=== PATIENT | female | born 1945 | race Caucasian/White ===

== ENCOUNTER → 2017-07-29 | Outpatient (CLI) | payer MEDICARE ==
--- NOTE | 2017-07-30 13:15 | RADIOLOGY IMAGING REPORT ---
FACILITY: [facility] [place] PATIENT NAME: VINCE MARTI : [id number] MR: [id number] V: [id number] EXAM DATE: [id number] ORDERING PHYSICIAN: KULWANT TAPIA TECHNOLOGIST: Abiola Packer PROCEDURE:BILATERAL DIGITAL SCREENING MAMMOGRAM WITH CAD ASSISTED INTERPRETATION & 3D TOMOSYNTHESIS COMPARISON:01/24/16 & priors back to 08/14/2011 INDICATIONS:SCREENING FINDINGS: Stable benign appearing mass or lymph node in the lower outer quadrant of the Right breast. Breast parenchyma is mostly fatty replaced. There are no mammographic findings concerning for malignancy. There is no significant interval change. DIAGNOSTIC CATEGORY 1--NEGATIVE. RECOMMENDATIONS: ROUTINE MAMMOGRAM AND CLINICAL EVALUATION. IMPRESSION: BIRADS 1 : Negative. Dictated by: Eduardo Mcconnell on 07/30/2017 at 11:08 Transcribed by: CASTILLO on 07/30/2017 at 12:41 Approved by: Eduardo Mcconnell on 07/30/2017 at 13:14 [facility]
== END ==
LOC: MAMO 04:01
PROVIDERS: ATTEND Family Medicine
DX: Z12.31 Encounter for screening mammogram for malignant neoplasm of breast (principal)
CPT/HCPCS: 77063; 77067

== ENCOUNTER → 2018-09-25 | Outpatient (CLI) | payer MEDICARE ==
[~2018-09-25] MED LIST: ASPI-1471 PO; BRIM5DRO7 OP; C,E,1CAP; CINN500C12 PO; CYAN1000 IJ; DORZ10DR3 OP; GARL1TAB9 PO; LATODPT OD; LEVO150T72 PO; TRIA15OI20 TP
--- NOTE | 2018-09-30 14:03 | RADIOLOGY IMAGING REPORT ---
FACILITY: [facility] PATIENT NAME: VINCE MARTI : [id number] MR: [id number] V: [id number] EXAM DATE: [id number] ORDERING PHYSICIAN: ARIS ARANDA TECHNOLOGIST: Abiola Packer PROCEDURE: BILATERAL DIGITAL SCREENING MAMMOGRAM WITH CAD ASSISTED INTERPRETATION & 3D TOMOSYNTHESIS. REASON FOR STUDY: Screening. FAMILY HISTORY OF BREAST CANCER: None. BREAST PROCEDURES/TREATMENTS: None. COMPARISON: Previous from 07/29/2017 back to 11/18/2012. VIEWS OBTAINED: 2D & 3D full field CC & MLO projections. BREAST DENSITY: The breasts are almost entirely fatty. MAMMOGRAM FINDINGS: There are no mass lesions, architectural distortions, or clusters of suspicious microcalcifications. No interval change when compared to the previous studies. IMPRESSION: BIRADS 1: Negative. DIAGNOSTIC CATEGORY 1--NEGATIVE. RECOMMENDATIONS: ROUTINE MAMMOGRAM IN 1YR AND CLINICAL EVALUATION. Dictated by: Reji Donald M.D. on 09/25/2018 at 17:10 Transcribed by: ALTON on 09/26/2018 at 11:38 Approved by: Reji Donald M.D. on 09/30/2018 at 13:59 [facility]
== END ==
LOC: MAMO 01:31
PROVIDERS: ATTEND Obstetrics & Gynecology
DX: Z12.31 Encounter for screening mammogram for malignant neoplasm of breast (principal)
CPT/HCPCS: 77063; 77067